=== PATIENT | female | born 1965 | race Caucasian/White ===

== ENCOUNTER → 2021-04-02 | Outpatient (CLI) | payer SELFPAY ==
--- NOTE | 2021-04-02 17:10 | Diagnostic Imaging Report ---
CLINICAL INDICATION: Patient with headache and previous aneurysm surgery and stents placed. EXAMS: MRA of the [place] of [place] performed without IV contrast using 3D [id number]. Multiple rotating 3-D MIP images were created. COMPARISON: None. FINDINGS: There is an area of peripheral low signal involving the right M1 MCA branch distally, which is suspected to represent an endovascular stent. This stent is patent. There is a bulbous prominent structure in the right MCA genu region measuring roughly 3-4 mm. The remainder of the [place] vascular structures are patent with no significant stenosis, vascular malformation, or aneurysm. IMPRESSION: 1: Suspected vascular stent within the right M1 MCA, which is patent. 2: There is a bulbous vascular area involving the right MCA genu region, which may represent an aneurysm. Comparison to prior imaging would better evaluate for stability. CT angiogram of the head may also help better delineate this area. Dictated by: Dictated on workstation # [id number]
== END ==
LOC: RAD 16:08
PROVIDERS: ATTEND Physician Assistant
DX: R51.9 Headache, unspecified (principal); Z98.890 Other specified postprocedural states; Z95.828 Presence of other vascular implants and grafts
CPT/HCPCS: 70544

== ENCOUNTER → 2022-03-30 | Outpatient (CLI) | payer BC ==
[2022-03-30 15:09] VITALS: BP 142/91
--- NOTE | 2022-03-30 16:32 | Cardiology Stress Test Report ---
Stress Test Report Date of Procedure/Referring: Date of Procedure: Mar 30, 2022 PCP [facility] Admitting Physician Admitting Physician: Attending Physician: Ольга Morales DO Indications: CP Baseline Heart Rate: 61 Baseline Blood Pressure: Blood Pressure Systolic: 142 Blood Pressure Diastolic: 91 Baseline EKG: Baseline EKG: NSR Summary/Conclusion: Summary: In summary, the patient started exercising with a baseline heart rate, blood pressure and EKG mentioned above Patient was able to exercise for a total of 3 minutes on Victorino protocol, METs 4.6 Maximum heart rate 145 Maximum blood pressure 204/96 Stress EKG, Minimal nondiagnostic changes Recovery EKG , Return to baseline Conclusion: 1. Fair exercise tolerance for 3 minutes on standard Victorino protocol, 4.6 METS achieving 89% of maximum expected heart rate 2. Hypertensive response to exercise with peak blood pressure 204/96 return to baseline during recovery 3. Nondiagnostic EKG changes with exercise with frequent PVCs noted early in recovery resolved at a later point. Copy Copies To 1: ОЛЬГА MORALES BASHAR J MD Mar 30, 2022 16:31
== END ==
LOC: CARD 14:08
PROVIDERS: ATTEND Pediatrics
DX: R07.89 Other chest pain (principal)
CPT/HCPCS: 93017